=== PATIENT | female | born 1955 | race Caucasian/White ===

== ENCOUNTER 2016-11-10 18:23 | Emergency (ER) | payer SELFPAY ==
[~2016-11-10] VITALS: Ht 167.6 cm; Wt 62.5 kg
[~2016-11-10 18:23] MED LIST: ACET-514 PO; AMLO-147 PO; CYAN100080 PO; FLEC100T PO; FLUO10CA66 PO; HYD25 PO; HYDR-3671 PO; MAGN400T28 PO; METO25TA7 PO; PANT40TA3 PO; PRAV40TA76 PO
[2016-11-10 18:30] VITALS: Ht 167.6 cm; Wt 62.5 kg
== END 2016-11-10 20:18 | disposition left against medical advice (07) ==
LOC: E/R 18:23
DX: Z53.21 Procedure and treatment not carried out due to patient leaving prior to being seen by health care provider (principal)

== ENCOUNTER 2017-04-06 07:45 | Emergency (ER) | payer SELFPAY ==
[~2017-04-06] VITALS: Ht 157.5 cm; Wt 61.0 kg
[2017-04-06 07:50] VITALS: Ht 157.5 cm; Wt 61.0 kg
== END 2017-04-06 08:07 | disposition left against medical advice (07) ==
LOC: E/R 07:45
DX: Z53.21 Procedure and treatment not carried out due to patient leaving prior to being seen by health care provider (principal)